=== PATIENT | female | born 1960 | race Caucasian/White ===

== ENCOUNTER → 2016-09-13 | Outpatient (CLI) | payer OTHER ==
[2016-09-13 11:21] LABS: BASO % 0.7 %; BASO ABS # 0.06 K/uL (0-0.2); COMPLETE YES; EOS % 1.3 %; HEMATOCRIT 41.3 % (37-47); IG% 0.2 %; LYMPH ABS # 2.67 K/uL (1.2-3.4); MEAN CELL VOLUME 94.3 fL (80-100); MEAN CORPUSCULAR HEMOGLOBIN 31.7 pg (25-34); MEAN CORPUSCULAR HGB CONC 33.7 g/dl (32-36); MEAN PLATELET VOLUME 9.9 fL (7.4-10.4); MONO % 7.3 %; NEUT % 60.5 %; PLATELET COUNT 332 K/uL (130-400); RED BLOOD COUNT 4.38 M/uL (4.2-5.4)
[2016-09-13 11:29] LABS: BLOOD UREA NITROGEN 13 mg/dl (7-18); BUN/CREATININE RATIO 15.2 (10-20); CALCIUM 8.9 mg/dl (8.5-10.1); CARBON DIOXIDE 24 mmol/L (21-32); CHLORIDE 109 mmol/L (98-107); CREATININE 0.84 mg/dl (0.60-1.20); GLUCOSE 79 mg/dl (70-99); POTASSIUM 4.6 mmol/L (3.5-5.1); SODIUM 141 mmol/L (136-145)
== END | disposition home or self-care (01) ==
LOC: C.CPL 10:23
PROVIDERS: ATTEND Orthopaedic Surgery
DX: M25.512 Pain in left shoulder (principal)

== ENCOUNTER → 2017-07-17 | Outpatient (CLI) | payer OTHER ==
[2017-07-17 14:33] LABS: URINE APPEARANCE CLEAR (CLEAR); URINE BILIRUBIN NEG (NEG); URINE COLOR YELLOW; URINE NITRITE NEG (NEG); URINE PH 5.5 (4.5-7.5); URINE SPECIFIC GRAVITY 1.011 (1.000-1.030); UROBILINOGEN NEG (NEG)
[2017-07-17 14:43] LABS: MANUAL MICROSCOPIC REQUIRED? NO; REVIEW REQ? NO
== END | disposition home or self-care (01) ==
LOC: C.LABSPEC 13:35
PROVIDERS: ATTEND Obstetrics & Gynecology
DX: R39.9 Unspecified symptoms and signs involving the genitourinary system (principal)

== ENCOUNTER → 2017-07-17 | Outpatient (CLI) | payer OTHER | END | disposition home or self-care (01) | LOC: C.PAPS 14:21 | PROVIDERS: ATTEND Obstetrics & Gynecology | DX: Z01.419 Encounter for gynecological examination (general) (routine) without abnormal findings (principal) ==

== ENCOUNTER → 2017-08-29 | Outpatient (CLI) | payer OTHER | END | disposition home or self-care (01) | LOC: C.LAB1850 12:06 | PROVIDERS: ATTEND Obstetrics & Gynecology | DX: N95.9 Unspecified menopausal and perimenopausal disorder (principal); R63.5 Abnormal weight gain ==

== ENCOUNTER → 2017-11-28 | Outpatient (CLI) | payer OTHER ==
--- NOTE | 2017-12-03 07:46 | MAMMOGRAPHY REPORT ---
THIS REPORT HAS BEEN AMENDED. BILATERAL DIGITAL SCREENING MAMMOGRAM TOMOSYNTHESIS WITH CAD: 11/28/2017 CLINICAL HISTORY: Routine screening. Patient has no complaints. TECHNIQUE: Breast tomosynthesis in addition to standard 2D mammography was performed. Current study was also evaluated with a Computer Aided Detection (CAD) system. COMPARISON: No prior exams were available for comparison. BREAST COMPOSITION: There are scattered areas of fibroglandular density in both breasts. FINDINGS: No suspicious mass, architectural distortion or cluster of microcalcifications is seen. IMPRESSION: ACR BI-RADS CATEGORY 1: NEGATIVE There is no mammographic evidence of malignancy. Prior outside mammograms are currently being reques debora and if obtained they will be reviewed, compared to the current exam to assess for any more subtle changes, and an addendum will be made to this report. Otherwise, a 1 year screening mammogram is re commended. The patient will receive written notification of the results. Approximately 10% of breast cancers are not detected with mammography. A negative mammographic report should not delay biopsy if a clinically suggestive mass is present. Susan Tejada M.D. ay/:12/02/2017 12:31:36 Construction Supervisor: Jana STEELE(Diane)(M), [facility] letter sent: Normal 08/20 BI-RADS Code: ACR BI-RADS Category 1: Negative AMENDMENT: 12/04/2017 Susan Tejada M.D. Prior mammograms from [facility] dated 09/05/2011, 09/22/2012 and 10/24/2015 became available for review. There has been no significant interval change comparing to the prior outside mammograms. No new suspicious masses, calcifications, areas of distortion or asymmetries are seen bilaterally. Recommend routine screening mammography in 1 year. Amended BI-RADS: ACR BI-RADS Category 2: Benign letter sent: Normal 08/20
== END | disposition home or self-care (01) ==
LOC: C.MAMM 15:05
PROVIDERS: ATTEND Obstetrics & Gynecology
DX: Z12.31 Encounter for screening mammogram for malignant neoplasm of breast (principal)

== ENCOUNTER → 2018-01-07 | Outpatient (CLI) | payer OTHER | END | disposition home or self-care (01) | LOC: C.LAB1850 12:42 | PROVIDERS: ATTEND Obstetrics & Gynecology | DX: N83.291 Other ovarian cyst, right side (principal) ==

== ENCOUNTER → 2018-03-21 | Day surgery (SDC) | payer OTHER ==
[2018-03-12 07:56] VITALS: BMI 32.0
[2018-03-13 14:07] VITALS: BMI 32.0
--- NOTE | 2018-03-13 14:22 | PAT Medication Instructions ---
Service Date Mar 13, 2018. Current Home Medication List Doxycycline Monohydrate (Monodox), 50 MG PO QAM Specialty Vitamins Products (Brain Might[employer]ha [employer] Q10), 1 TAB PO QAM Medication Instructions For Your Scheduled Surgery - Hold the following medications starting today (03/13): Specialty Vitamins Products (Brain Might[employer]Dha [employer] Q10), 1 TAB PO QAM - Take the following medications the morning of surgery with a sip of water: Doxycycline Monohydrate (Monodox), 50 MG PO QAM If you have any questions please call us at [phone] or [phone] or [phone]
[~2018-03-21] VITALS: Ht 162.6 cm; Wt 85.1 kg
[~2018-03-21] MED LIST: ATROPINE SULFATE 0.1 MG/ML 5ML SYR IV PRN; CEFAZOLIN 2000MG IV PUSH 15 ML IV SCH; DEXAMETHASONE SOD INJ 4 MG/ML VIAL ONE; DOXY100C76 PO; EpHEDrine SULFATE INJ 50 MG/ML AMP IV PRN; EpHEDrine SULFATE INJ 50 MG/ML AMP ONE; FENTANYL CITRATE INJ 50 MCG/1 ML 2 ML VIAL IV PRN; FENTANYL CITRATE INJ 50 MCG/1 ML 2 ML VIAL ONE; GLYCOPYRROLATE INJ 0.2 MG/ML VIAL ONE; HYDROmorphone INJ 1 MG/ML SYR IV PRN; HYDROmorphone INJ 2 MG/ML SYR/VIAL ONE; IBUPROFEN 600 MG TAB PO PRN; KETOROLAC TROMETHAMINE 30 MG/ML VIAL IV. PRN; KETOROLAC TROMETHAMINE 30 MG/ML VIAL ONE; LACTATED RINGER'S 1000ML 1,000 ML IV SCH; LIDOCAINE HCL 2% 2 ML VIAL (20MG/ML) ONE; MIDAZOLAM HCL 1 MG/ML 2ML VIAL ONE; NEOSTIGMINE METHYLSULFATE 5 MG/5 ML SYR ONE; ONDANSETRON INJ 2 MG/ML 2 ML VIAL IV PRN; ONDANSETRON INJ 2 MG/ML 2 ML VIAL ONE; OXYCODONE/ACETAMINOPHEN 5-325 TAB PO PRN; PHENYLEPHRINE 100MCG/ML 5ML SYR IV PRN; PHENYLEPHRINE HCL INJ 10 MG/ML VIAL ONE; PROMETHAZINE HCL INJ 12.5 MG in SODIUM CHLORIDE 0.9% 50ML 50 ML IV PRN; PROMETHAZINE HCL INJ 25 MG in SODIUM CHLORIDE 0.9% 50ML 50 ML IV PRN; PROPOFOL IV EMULSION 10 MG/ML 20 ML VIAL ONE; ROCURONIUM BROMIDE 10 MG/ML 5 ML VIAL ONE; SODIUM CHLORIDE 0.9% 1000ML 1,000 ML IV SCH; SPECTAB PO; SUCCINYLCHOLINE CHLORIDE 20 MG/ML 10 ML VIAL IV ONE
[2018-03-21 09:35] VITALS: Ht 162.6 cm; Wt 85.1 kg
--- NOTE | 2018-03-21 12:27 | History & Physical Bridge Note ---
H&P Re-Evaluation Bridge Note: I have examined the patient, reviewed the History & Physical and in the interval since the performance of the History & Physical I have noted the following changes of clinical significance: No changes noted
--- NOTE | 2018-03-21 14:22 | [facility] Post Operative Brief Note ---
Immediate Operative Summary Operative Date Mar 21, 2018. Pre-Operative Diagnosis Complex cyst of the right ovary, abnormal uterine bleeding. Post-Operative Diagnosis Same as preop Procedure(s) Performed Laparoscopic Right Salpingectomy Oophorectomy and intrauterine placement of Mirena Surgeon Dr. Lee [employer]opter Pilot Surgeon(s) None Estimated Blood Loss 5ml Findings Consistent with Post-Op Diagnosis Specimens A: Right tube and ovary Drains None Anesthesia Type General Complication(s) none Disposition Accompanied Pt To Recover: yes Disposition: Recovery Room / PACU
--- NOTE | 2018-03-21 14:26 | Discharge Instructions ---
Discharge Instructions Date of Service Mar 21, 2018. Visit Reason for Visit: Complex Left Ovarian Cyst, AUB Discharge Discharge Diagnosis / Problem: Removal of Right ovary and tube, and placement of Mirena Discharge Goals Goal(s): Specific goals Activity Recommendations Activity Limitations: per Instructions/Follow-up section Anesthesia . Post Anesthesia Instructions: If you have had General Anesthesia or IV Sedation: * Do not drive today. * Resume driving when surgeon permits. * Do not make important decisions or sign legal documents today. * Call surgeon for: 1. Temperature elevations greater than 101 degrees F. 2. Uncontrollable pain. 3. Excessive bleeding. 4. Persistent nausea and vomiting. 5. Medication intolerance (nausea, vomiting or rash). * For nausea and vomiting use only clear liquids such as: tea, soda, bouillon until nausea subsides, then gradually increase diet as tolerated. * If you have any concerns or questions, call your surgeon's office. If physician is unavailable and it is an emergency, call 911 or go to the nearest emergency room. . Instructions / Follow-Up Instructions / Follow-Up ACTIVITY RECOMMENDATIONS: * Rest the first 2-3 days. You should be back to your normal activity levels by day 3. * No heavy lifting for 2 weeks. * No intercourse, tampons or douching for 1-2 weeks. * You may shower the next day. * Do not drive anytime that you are taking narcotic pain medicines. RETURN TO SCHOOL/WORK: * May return to school or work after 2-3 days. DIET: Nausea may occur in the immediate post-operative period. If so, take clear liquids such as tea, bouillon, apple juice until all nausea has subsided, then resume usual diet. MEDICATIONS: Resume previous medications unless instructed otherwise by your surgeon. Ibuprofen 200mg 2-3 tablets every 4-6 hours as needed -- OR -- Aleve 2 tablets every 8-12 hours as needed for post-operative discomfort Medications are over the counter. Tylenol may be used if above medications are contraindicated or not preferred. Medication should be taken with food or milk. Do not take on an empty stomach. SPECIAL CARE INSTRUCTIONS: * Check temperature twice daily for one week. report any elevation over 101 degrees. * You may experience some vagina spotting and/or bleeding. This is normal for 1 -2 weeks and should not be heavier than a normal period. If it is unusual in amount, call your physician. * Post-operative discomfort may consist of a sore throat, a "bloated" feeling and pain in the shoulders. these are normal symptoms, which usually only last for 2-3 days. * It is OK to shower the day after surgery. Do not scrub your incisions, just let soapy water run over these areas; you may peel off any glue that remains 7 days after surgery. FOLLOW UP VISIT: Call your doctor's office for a post-operative 2 week visit if not already scheduled. Diet Recommendations Recommended Home Diet: resume previous diet Procedures Procedures Performed: Laparoscopic Right Salpingectomy Oophorectomy and intrauterine placement of Mirena Pending Studies Studies pending at discharge: no Medical Emergencies . Who to Call and When: Medical Emergencies: If at any time you feel your situation is an emergency, please call 911 immediately. . Non-Emergent Contact Non-Emergency issues call your: Primary Care Provider . . "Provider Documentation" section prepared by Angela Lee. .
--- NOTE | 2018-03-21 15:09 | Anesthesiology Progress Note ---
Anesthesia Post Op Note Date & Time Mar 21, 2018 at 15:09 Vital Signs Pain Intensity: 4.0 Vital Signs Past 12 Hours Date Time Temp Pulse Resp B/P (MAP) Pulse Ox O2 Delivery O2 Flow Rate FiO2 03/21/18 15:00 49 15 87/50 96 Room Air 03/21/18 14:50 65 18 99/50 95 Room Air 03/21/18 14:40 55 16 98/58 99 Oxymask 8 03/21/18 14:33 36.2 69 16 104/45 97 Oxymask 8 Notes Mental Status: alert / awake / arousable, participated in evaluation Pt Amnestic to Procedure: Yes Nausea / Vomiting: adequately controlled Pain: adequately controlled Airway Patency, RR, SpO2: stable & adequate BP & HR: stable & adequate Hydration State: stable & adequate Anesthetic Complications: no major complications apparent
--- NOTE | 2018-03-21 15:25 | OPERATIVE REPORT ---
DATE OF OPERATION: 03/21/2018 PREOPERATIVE DIAGNOSES: 1. Complex cyst of the right ovary 6.5 cm in greatest dimension. 2. Abnormal uterine bleeding. 3. Elevated follicle-stimulating hormone. POSTOPERATIVE DIAGNOSES: 1. Complex cyst of the right ovary 6.5 cm in greatest dimension. 2. Abnormal uterine bleeding. 3. Elevated follicle-stimulating hormone. PROCEDURE: Laparoscopic right salpingectomy and oophorectomy plus placement of intrauterine Mirena device. SURGEON: Angela Lee MD TECHNOLOGY DEVELOPMENT INTERN: None. ESTIMATED BLOOD LOSS: 5 mL. FINDINGS: Consistent with postoperative diagnoses. SPECIMENS: Right tube and ovary. DRAINS: None. ANESTHESIA: General. COMPLICATIONS: None. DISPOSITION: Stable to recovery. DESCRIPTION: Zoe was placed on the table in the dorsal lithotomy position and prepped in standard sterile fashion. A hard time-out was taken prior to proceeding. A Isaac catheter was placed in the usual manner with drainage of clear yellow urine. Weighted and Remy specula were introduced to the vagina and the anterior lip of the cervix was grasped using a single-tooth tenaculum. The Mirena device was inserted to the uterine fundus at a depth of 10 cm without complication. The strings were then trimmed to 1 cm. A Spring's cannula was placed in the cervical os and attached to the existing tenaculum and left there as a uterine manipulator. Attention was then turned to the abdomen where a supraumbilical incision was made to allow optical entry. The entry to the abdomen was made without complication. The abdomen was insufflated and under direct visualization, right and left lower quadrant ports were placed. Survey of the pelvic organs and upper abdomen revealed a normal liver edge, normal left upper quadrant, normal appearing uterus, normal appearing left ovary, normal bilateral tubes, and a grossly enlarged right ovary. Using a grasper, the right tube and ovary were elevated and using a Harmonic scalpel, these were sharply dissected off the infundibulopelvic ligament and the mesosalpinx as well as the mesovarium. The uteroovarian ligament was also ligated and divided to free the specimen. The ovary and tube were placed en bloc in an EndoCatch bag. The EndoCatch bag was then elevated to the supraumbilical incision. The ovary and tube were decompressed by lancing the cystic portion of the ovary for release of a clear water-like fluid. Once the ovary was decompressed, the entire bag containing ovary and tube were retrieved. The ovary and tube were sent for pathology. The umbilical trocar was replaced. The camera was utilized to do a final survey of the abdomen to assure good hemostasis at all working sites and this being assured, the procedure was brought to completion. The abdomen was desufflated. All trocars were removed. The umbilical site was closed with a UR-6 at the fascial layer and a 4-0 Monocryl and Dermabond were used to close the skin at all 3 incision sites. Finally, the vaginal manipulator and cervical tenaculum were removed and the Isaac catheter was removed as well. The patient is being transferred to the recovery room in stable condition having tolerated her procedure well. I attest to the content of the Intraoperative Record and any orders documented therein. Any exception s are noted below.
[2018-03-21 15:27] VITALS: BP 89/51; PULSE 56; TEMP 36.5; O2SAT 97
[2018-03-21 15:57] VITALS: BP 105/50; PULSE 60; TEMP 36.5; O2SAT 96
== END | disposition home or self-care (01) ==
LOC: C.ACU 09:15
PROVIDERS: ATTEND Obstetrics & Gynecology
DX: N83.291 Other ovarian cyst, right side (principal); N95.9 Unspecified menopausal and perimenopausal disorder; N93.9 Abnormal uterine and vaginal bleeding, unspecified; R63.5 Abnormal weight gain; E78.00 Pure hypercholesterolemia, unspecified; E03.9 Hypothyroidism, unspecified; Z90.49 Acquired absence of other specified parts of digestive tract